=== PATIENT | male | born 1965 | race Caucasian/White ===

== ENCOUNTER 2018-10-25 10:21 | Emergency (ER) | payer OTHER ==
[~2018-10-25] VITALS: Ht 170.2 cm; Wt 95.0 kg
[2018-10-25] MEDS ORDERED: CHOL50004 PO (10:26)
[2018-10-25 12:00] VITALS: BP 124/59
== END 2018-10-25 13:43 | disposition left against medical advice (07) ==
LOC: EMS 10:22
DX: H57.11 Ocular pain, right eye (principal); Z53.21 Procedure and treatment not carried out due to patient leaving prior to being seen by health care provider